=== PATIENT | male | born 1955 | race Caucasian/White ===

== ENCOUNTER 2016-11-13 17:06 | Emergency (ER) | payer BC ==
[~2016-11-13] VITALS: Ht 177.8 cm; Wt 123.0 kg
[~2016-11-13 17:06] MED LIST: CELEBREX100 MG PO; COREG3.125 MG PO; COREG6.25 M1 PO; CRESTOR20 MG PO; FLONASE16 G1 BOTH NARES; GLUCOPHAGE XR,500 MG PO; IPRATROPIUM BRO30 ML BOTH NARES; LO-DOSE ASPIRIN81 M2 PO; LYRICA75 MG PO; METFORMIN HCL500 MG PO; MOTRIN400 MG PO; PRINIVIL5 MG PO; ROBITUSSIN DM118 ML PO; SIMVASTATIN20 MG PO; TESSALON PERLE100 MG PO; VENTOLIN HFA18 GM IH; XARELTO15 MG PO; ZYRTEC10 M3 PO
[2016-11-13 17:48] LABS: EOSINOPHIL (%) 3.6 % (0-5); EOSINOPHIL COUNT 0.3 K/uL (0-0.3); HEMATOCRIT 41.5 % (38.0-50.0); IMMATURE GRANULOCYTE (%) 0.4 % (0.0-0.7); INSTRUMENT ABS NEUTROPHIL CT 4.2 K/uL; LYMPHOCYTE COUNT 1.9 K/uL (1.0-2.8); MCH 29.4 PG (29.0-34.0); MCHC 33.3 G/DL (30.0-36.0); MCV 88.5 FL (86-99); MEAN PLAT.VOLUME 9.9 uM^3 (9.0-12.4); MONOCYTE (%) 9.1 % (3-12); MONOCYTE COUNT 0.6 K/uL (0-0.8); NEUTROPHIL COUNT 4.2 K/uL (1.8-6.4); PLATELET COUNT 203 K/uL (156-360); RBC DIS.WIDTH-CV 13.7 % (11.8-14.6); RBC DIS.WIDTH-SD 44.3 % (39-53); RED BLOOD COUNT 4.69 M/uL (4.00-5.50)
[2016-11-13 17:57] LABS: CHLORIDE 108 mEq/L (99-109); POTASSIUM 4.1 mEq/L (3.7-5.4); SODIUM 140 mEq/L (136-147)
[2016-11-13 17:59] LABS: GLUCOSE 111 mg/dL (70-99)
[2016-11-13 18:00] LABS: ANION GAP 11 MEQ/L (2-14)
[2016-11-13 18:01] LABS: TOTAL BILIRUBIN 0.5 mg/dL (0.0-1.0)
[2016-11-13 18:03] LABS: ALKALINE PHOSPHATASE 69 IU/L (3-129); GFR ESTIMATE (CALCULATED) 55 mL/min/
[2016-11-13 18:04] LABS: UREA NITROGEN (BUN) 17 mg/dL (9-23)
[2016-11-13 18:23] LABS: INTER. NORMALIZED RATIO 1.2; PROTHROMBIN TIME 11.8 (9.2-11.2); PTT 32.7 (25-32)
[2016-11-13 19:58] VITALS: BP 125/72
== END 2016-11-13 19:58 | disposition home or self-care (01) ==
LOC: EME 17:06 → EXP 17:06
PROVIDERS: Physician Assistant
DX: R23.3 Spontaneous ecchymoses (principal); Z79.01 Long term (current) use of anticoagulants; Z91.040 Latex allergy status; Z79.82 Long term (current) use of aspirin; E11.9 Type 2 diabetes mellitus without complications; Z79.84 Long term (current) use of oral hypoglycemic drugs; I10 Essential (primary) hypertension; Z87.442 Personal history of urinary calculi; Z86.711 Personal history of pulmonary embolism
CPT/HCPCS: 80053; 85025; 85610; 85730; 99281; 99283